=== PATIENT | male | born 1970 | race Caucasian/White ===

== ENCOUNTER 2017-09-21 18:55 | Emergency (ER) | payer OTHER ==
[~2017-09-21] VITALS: Ht 172.7 cm; Wt 90.7 kg
--- NOTE | 2017-09-21 19:15 | NUR ---
PT AMBULATORY TO ER BED 6, PT C/O SOB AND ANXIETY. PT PLACED IN GOWN AND ON VS/SALESPERSON WOMEN'S HATS. PT VSS/RESP EVEN UNLABORED/NAD NOTED/SKIN WARM AND DRY/DENIES N-V-D/AOX4.
[2017-09-21] MEDS ORDERED: KETOROLAC TROMETHAMINE INJ 30 MG/ML VIAL IV ONE (19:30)
[2017-09-21] MEDS ORDERED: LORAZEPAM INJ 2 MG/ML VIAL IV ONE (19:30)
[2017-09-21] MEDS ORDERED: IV NS 0.9% 500 ML BAG IV ONE (19:30)
--- NOTE | 2017-09-21 19:30 | NUR ---
18G IV TO LAC USING ASEPTIC TECH, BLOOD SAMPLE HANDED OVER TO LAB AT BEDSIDE. IV FLUSHES EASILY.
[2017-09-21] MEDS ORDERED: KETOROLAC TROMETHAMINE 15 MG/ML VIAL ONE (19:35)
[2017-09-21 19:36] LABS: BASOPHILS # (AUTO) 0.1 /CMM (0.0-0.2); BASOPHILS % (AUTO) 0.7 % (0.0-2.0); EOSINOPHILS # (AUTO) 0.1 /CMM (0.0-0.7); EOSINOPHILS % (AUTO) 0.7 % (0.0-6.0); HEMATOCRIT 42 % (39-51); HEMOGLOBIN 13.9 g/dL (13.5-17.5); LYMPHOCYTES # (AUTO) 4.3 /CMM (0.8-4.8); LYMPHOCYTES % (AUTO) 40.4 % (20.0-44.0); MEAN CORPUSCULAR HEMOGLOBIN 29 PG (26.0-33.0); MEAN CORPUSCULAR HGB CONC 33 g/dl (31.0-36.0); MEAN CORPUSCULAR VOLUME 88 fL (80-96); MONOCYTES # (AUTO) 0.5 /CMM (0.1-1.30); MONOCYTES % (AUTO) 4.4 % (2.0-12.0); NEUTROPHILS # (AUTO) 5.5 /CMM (1.8-8.9); NEUTROPHILS % (AUTO) 53.8 % (43.0-81.0); PLATELET COUNT (AUTO) 251 /CMM (150-450); RDW COEFFICIENT OF VARIATION 12.4 (11.5-15.0); RED BLOOD CELL COUNT(AUTO) 4.75 MIL/uL (4.5-6.0); WHITE BLOOD COUNT (AUTO) 10.5 K/uL (4.3-11.0)
[2017-09-21] MEDS ORDERED: LORAZEPAM INJ 2 MG/ML VIAL ONE (19:36)
--- NOTE | 2017-09-21 19:40 | NUR ---
XRAY AT BEDSIDE.
[2017-09-21 19:46] LABS: CALCIUM, SERUM 9.2 mg/dL (8.5-10.1); CARBON DIOXIDE 28 mmol/L (21-32); CHLORIDE 102 mmol/L (98-107); GLUCOSE 116 mg/dL (74-106); SODIUM SERUM 138 mmol/L (136-145); UREA NITROGEN, BLOOD 15 mg/dL (7-18)
[2017-09-21 19:48] LABS: POTASSIUM 2.8 mmol/L (3.5-5.1)
[2017-09-21 19:55] LABS: TROPONIN I < 0.017 ng/mL (0.00-0.056)
[2017-09-21 20:07] LABS: D-DIMER 0.22 mg/L(FEU (0.17-0.50); INR 0.96 (0.87-1.13)
--- NOTE | 2017-09-21 20:20 | NUR ---
ULTRASOUND AT BEDSIDE.
[2017-09-21] MEDS ORDERED: POTASSIUM CHLORIDE 20 MEQ TAB.PRT.SR PO ONE ×2 (20:55→21:00)
--- NOTE | 2017-09-21 20:59 | NUR ---
AT BEDSIDE SPEAKING WITH PT.
--- NOTE | 2017-09-21 21:23 | NUR ---
IV removed. Catheter intact and site benign. Pressure and 4x4 applied to site. No bleeding noted. Patient discharged with mother to home in stable condition. Written and verbal after care instructions given, pt instructed not to drive. Patient verbalizes understanding of instruction. Pt ambulatory with a steady gait.
[2017-09-21 21:26] VITALS: BP 167/106
== END 2017-09-21 21:26 | disposition home or self-care (01) ==
LOC: ER 18:59
DX: R07.9 Chest pain, unspecified (principal); F41.1 Generalized anxiety disorder; R00.2 Palpitations; M25.571 Pain in right ankle and joints of right foot; I10 Essential (primary) hypertension; M10.9 Gout, unspecified; F17.200 Nicotine dependence, unspecified, uncomplicated
CPT/HCPCS: 36415; 71010; 73610; 80048; 84484; 84550; 85025; 85378; 85730; 93005; 93971; 96374; 96375; 99285; A4606; J1885; J2060; J7040; Z7610